=== PATIENT | female | born 1955 | race Caucasian/White ===

== ENCOUNTER 2021-08-04 16:52 | Emergency (ER) | payer MEDICARE, SELFPAY ==
--- NOTE | ~2021-08-04 | XR_ITS ---
EXAMINATION: XR chest 2V 08/04/2021 17:24 INDICATION: Cough for 3 weeks PROCEDURE: 2 view chest COMPARISON: 11/05/2008 FINDINGS: The lungs are clear. The cardiomediastinal silhouette is within normal limits. There are no pleural effusions. There is no pneumothorax suspected. There are cholecystectomy clips. IMPRESSION: 1: NO ACUTE CARDIOPULMONARY DISEASE. Reviewed, dictated and finalized at location A.
[2021-08-04 17:02] VITALS: BP 155/85; PULSE 71; RESP 16; TEMP 36.5; O2SAT 98
--- NOTE | 2021-08-04 17:09 | ED.URI ---
HPI - URI/Sore Throat General Chief Complaint: Upper Respiratory Infection Stated Complaint: Coughing, shortness of breath, chest pain Time Seen by Provider: 08/04/21 17:04 Source: patient, family and RN notes reviewed History of Present Illness HPI Narrative: Patient is a 66-year-old female who presents the urgent care with her with complaints of a cough and possible bronchitis. Patient states is been ongoing for approximately 3 weeks and she has been taking [id number] cough medications without much improvement. Patient denies of any known fever but states she has had some chills and sweats at night. Denies of any vomiting. States that she has some intermittent shortness of breath but currently denies of shortness of breath or chest pain. Patient's states that he had pneumonia a few weeks ago. No other acute complaints. No acute distress noted. Patient aware of the plan of care. Some parts of this dictation were generated by voice recognition software and may contain typographical and/or grammatical inaccuracies. Related Data Home Medications Medication Instructions Recorded Confirmed atorvastatin 20 mg tablet 20 mg PO DAILY 04/13/21 08/04/21 diclofenac sodium 75 mg 75 mg PO BID 04/13/21 08/04/21 tablet,delayed release levothyroxine 25 mcg capsule 25 mcg PO DAILY 04/13/21 08/04/21 metoprolol succinate 50 mg 50 mg PO DAILY 04/13/21 08/04/21 tablet,extended release 24 hr omeprazole 20 mg capsule,delayed 20 mg PO DAILY 04/13/21 08/04/21 release minocycline 50 mg capsule 50 mg PO DAILY 04/19/21 08/04/21 buspirone 5 mg PO BID 08/04/21 08/04/21 cetirizine [Zyrtec] 10 mg PO DAILY 08/04/21 08/04/21 diazepam [Valium] 10 mg PO TID PRN 08/04/21 08/04/21 Allergies Allergy/AdvReac Type Severity Reaction Status Date / Time latex Allergy Severe RASH Verified 08/04/21 17:10 ITCHING WHERE TOUCHED Review of Systems Review of Systems: CONSTITUTIONAL: Denies fever, chills, or sweats. EYES: Denies visual changes, redness, or discharge. ENT: Denies rhinorrhea, congestion, sore throat, or otalgia. CARDIOVASCULAR: Denies chest pain, palpitations, or edema. RESPIRATORY: Reports of wet cough and intermittent dyspnea GASTROINTESTINAL: Denies abdominal pain, nausea, vomiting, or diarrhea. GENITOURINARY: Denies dysuria or hematuria. SKIN: Denies rash or itching. MUSCULOSKELETAL: Denies back pain, joint pain, or myalgia. NEUROLOGIC: Denies headache, numbness, or weakness. All other systems reviewed are negative, except as documented in HPI. [facility] Past Medical History Medical History (Updated 08/04/21 @ 17:32 by SIL Hammer) GERD (gastroesophageal reflux disease) High blood pressure High cholesterol History of breast cancer Surgical History Surgical History H/O bilateral mastectomy History of partial hysterectomy Hx of tonsillectomy Family History Family History Father Hypertension Mother Hypertension Grandparent Breast cancer Social History Social History Years smoked: 20 Smoking status: Former smoker Tobacco type: cigarettes Alcohol intake: never Additional occupation/education comments: homemaker Comments At the time of my signature, I reviewed and agree with the nursing past medical, surgical, social, and family history. There is no relevant family history pertinent to the patient complaint. Exam Narrative: GENERAL: This is a well-nourished, well-developed patient, in no apparent distress. HEAD: normocephalic, atraumatic. EYES: PERRL. Sclera clear/white. Vision is grossly intact. EARS: External ears normal, auditory canals clear and without drainage, TMs normal without perforation. Hearing grossly intact. NOSE: External nose normal with no obvious nasal discharge, nares without
[2021-08-04 17:13] VITALS: BP 155/85; PULSE 71; RESP 16; TEMP 36.5; O2SAT 98
== END 2021-08-04 17:41 | disposition home or self-care (01) ==
PROVIDERS: Emergency Provider Nurse Practitioner Family; PCP Family Medicine
DX: J40 Bronchitis, not specified as acute or chronic (principal); Z87.891 Personal history of nicotine dependence; K21.9 Gastro-esophageal reflux disease without esophagitis; Z90.13 Acquired absence of bilateral breasts and nipples
CPT/HCPCS: 71046; 99213; G0463

== ENCOUNTER 2021-08-25 15:04 | Emergency (ER) | payer MEDICARE, SELFPAY ==
--- NOTE | ~2021-08-25 | XR_ITS ---
XR chest 2V DATE: 08/25/2021 16:37 INDICATION: Cough, shortness of breath for 2 weeks. Former smoker. TECHNIQUE: PA and lateral views COMPARISON: None FINDINGS: Normal heart size. No hilar or mediastinal enlargement. No pulmonary infiltrate or consolid ation, pleural effusion or pulmonary vascular congestion or pneumothorax. Moderate bilateral hyperinflation. Surgical clips overlie the right axillary area and right upper quadrant of the abdomen. Degenerative disc disease and uncovertebral joint spurring in the lower cervical spine. Osteoarthritic change at the left and possibly right shoulder joints. Osteopenia. IMPRESSION: Moderate hyperinflation; no active cardiopulmonary disease Reviewed, dictated and finalized at location B.
--- NOTE | ~2021-08-25 | CT_ITS ---
EXAMINATION: CTA chest PE protocol DATE: 08/25/2021 20:23 INDICATION: Shortness of breath and cough TECHNIQUE: Computed tomography angiography (CTA) of the chest was performed with 100 mL Omnipaque-350 intravenous contrast timed to evaluate the pulmonary arteries. Coronal maximum intensity projection 3D-reconstructions were created by the technologist. The dose-length product (DLP) was 220.88 mGy-cm. Automated exposure control and iterative reconstruction technique were employed. COMPARISON: 10/12/2010 FINDINGS: The pulmonary arteries are well-opacified. No pulmonary embolism is identified. There are a few small clusters of nodules in the lower lobes. There is no pleural effusion or pneumothorax. Calc ified pulmonary nodules are consistent with old granulomatous disease. No pathologically enlarged tho racic lymph nodes are identified. The heart size is normal. There are changes of bilateral mastectomy with implant reconstruction. The gallbladder is surgically absent. There is a chronic burst fracture of T12 without significant change. IMPRESSION: 1. No pulmonary embolism. 2. Small clusters of nodules in the lower lobes, likely infectious or inflammatory. Reviewed, dictated and finalized at location A. IMPRESSION: 1. No pulmonary embolism. 2. Small clusters of nodules in the lower lobes, likely infectious or inflammat ory.
[2021-08-25 15:05] VITALS: PULSE 90; RESP 20; O2SAT 94
--- NOTE | 2021-08-25 15:08 | ECG_ITS ---
Measurements Intervals [place] Rate: 80 P: 63 NH: 134 QRS: 62 QRSD: 81 T: 67 QT: 354 QTc: 409 Interpretive Statements SINUS RHYTHM WITH SINUS ARRHYTHMIA BASELINE ARTIFACT- I, III, AVR, AVL, AVF, V1 NORMAL ECG Electronically Signed On 08-25-2021 16:16:50 CDT by Anibal Yee D.O.
[2021-08-25 16:07] VITALS: BP 163/101; PULSE 88; RESP 14; TEMP 36.2; O2SAT 98
[2021-08-25 16:13] LABS: Basophils Percent Auto 0.4 % (0.2-1.2); Eosinophils Absolute Auto 0.6 K/mm3 (0-0.3); Eosinophils Percent Auto 7.5 % (0-4.4); Hematocrit 42.5 % (37.0-47.0); Hemoglobin 14.2 g/dL (12.0-15.0); Immature Granulocyte Absolute 0.01 K/mm3 (0.00-0.031); Immature Granulocyte Percent A 0.1 % (0-0.5); Lymphocytes Absolute Auto 2.15 K/mm3 (0.9-3.2); Lymphocytes Percent Auto 28.7 % (18.3-44.2); Mean Corpuscular HGB Conc 33.4 g/dl (32-36); Mean Corpuscular Hemoglobin 30.5 pg (26-34); Mean Corpuscular Volume 91.2 fl (80-100); Mean Platelet Volume 8.8 fl (7.4-10.4); Monocytes Absolute Auto 0.5 K/mm3 (0.1-0.6); Monocytes Percent Auto 6.7 % (2.6-8.5); Neutrophils Absolute Auto 4.3 K/mm3 (1.3-6.7); Neutrophils Percent Auto 56.6 % (45.5-73.1); Platelet Count Result 251 k/mm3 (150-375); Red Blood Count 4.66 M/mm3 (4.2-5.4); Red Cell Distribution Width 14.2 % (11.5-14.5); White Blood Count 7.5 K/mm3 (4.5-10.0)
[2021-08-25 16:23] LABS: Anion Gap 10 mmol/L (8-16); Blood Urea Nitrogen 13 mg/dL (7-17); Carbon Dioxide 26 mmol/L (22-30); Chloride 106 mmol/L (98-107); Estimated CRCL calculation 52 ml/min; Estimated Glomerular Filt Rate > 60; Glucose 107 mg/dL (65-110); Potassium 3.9 mmol/L (3.4-5.0); Sodium 142 mmol/L (137-145)
[2021-08-25 16:45] VITALS: O2SAT 100
[2021-08-25 17:08] LABS: Alveolar/Arterial O2 Gradient 36.7 mmHg; Base Excess ABG -0.1 mEq/l (+/-2.0); Fractional Inspired Oxygen 21 %; HCO3 ABG 24.4 mEq/l (22.0-26.0); Oxygen Content ABG 19.7 %vol (16.0-22.0); Oxygen Saturation ABG 93.3 % (95.0-100.0); Oxyhemoglobin 91.8 % THb (90.0-100.0); PCO2 ABG 39.4 mmHg (35.0-45.0); PO2 ABG 65.9 mmHg (80.0-100.0); PO2 FiO2 Ratio Arterial Blood 3.14 %; Total Hemoglobin 15.3 g/dL (12.0-18.0)
[2021-08-25 17:09] LABS: Device ROOM AIR; Modified Allen's Test Pass; Site Drawn LEFT RADIAL
--- NOTE | 2021-08-25 19:09 | PC.NURSE ---
Pt refusing lab draw for D-dimer. EDP goldie aware
--- NOTE | 2021-08-25 19:24 | PC.NURSE ---
Report received from IRVING Hayes. Assumed care of patient at this time.
--- NOTE | 2021-08-25 19:53 | PC.NURSE ---
Patient agreed to CT, IV was placed. Patient declined request for repeat VS.
--- NOTE | 2021-08-25 20:10 | PC.NURSE ---
Patient taken to CT.
--- NOTE | 2021-08-25 20:36 | ED.SOB ---
HPI - SOB/Dyspnea General Chief Complaint: Shortness of Breath/Dyspnea Stated Complaint: SOB- BLUISH LIPS SATS 94% Time Seen by Provider: 08/25/21 16:41 Source: patient and family Mode of arrival: ambulatory Limitations: no limitations History of Present Illness HPI Narrative: 66-year-old female A former smoker who has received a moderna Covid vaccine Complains of cough and shortness of breath for several weeks Patient reports that she had had symptoms for a couple of weeks when she was seen at an urgent care about 3 weeks ago and was prescribed steroids and an inhaler She did not feel like she was really getting better and was followed up by her primary care doctor in the office several days ago and prescribed a Z-Yung which she also does not believe is helping her but which she is still taking for 2 more days She feels like she has wheezing, a cough which is sometimes productive of clear phlegm, no fever Her notes that she has seasonal allergies He also mentions that he does not think she is using her inhaler correctly, and on asking her to demonstrate it does appear that she is using it in the opposite way of which it is intended and that she takes a full deep breath before depressing the plunger while she exhales She does have a huge bottle of minocin which she takes very intermittently for rosacea and has not used lately She is not aware of being previously diagnosed with any heart problems or lung problems She also complains of some bluish discoloration to her perioral skin Related Data Home Medications Medication Instructions Recorded Confirmed atorvastatin 20 mg tablet 20 mg PO DAILY 04/13/21 08/04/21 diclofenac sodium 75 mg 75 mg PO BID 04/13/21 08/04/21 tablet,delayed release levothyroxine 25 mcg capsule 25 mcg PO DAILY 04/13/21 08/04/21 metoprolol succinate 50 mg 50 mg PO DAILY 04/13/21 08/04/21 tablet,extended release 24 hr omeprazole 20 mg capsule,delayed 20 mg PO DAILY 04/13/21 08/04/21 release minocycline 50 mg capsule 50 mg PO DAILY 04/19/21 08/04/21 buspirone 5 mg PO BID 08/04/21 08/04/21 cetirizine [Zyrtec] 10 mg PO DAILY 08/04/21 08/04/21 diazepam [Valium] 10 mg PO TID PRN 08/04/21 08/04/21 Allergies Allergy/AdvReac Type Severity Reaction Status Date / Time latex Allergy Severe RASH Verified 08/04/21 17:10 ITCHING WHERE TOUCHED Review of Systems Review of Systems: All systems reviewed & are unremarkable except as noted in HPI and below Constitutional: Constitutional: Reports no additional constitutional complaints, Denies chills, Denies fever(s) and Denies headache(s) Eyes: Eyes: Reports no additional eye complaints and Denies change in vision ENT: Denies headache(s), Reports nasal congestion and Denies sore throat Cardiovascular: Cardiovascular: Denies chest pain and Denies dyspnea Respiratory: Respiratory: Reports cough, Reports dyspnea and Reports wheezing Gastrointestinal: Gastrointestinal: Denies abdominal pain, Denies diarrhea and Denies vomiting Genitourinary: Genitourinary: Denies urinary frequency and Denies dysuria Musculoskeletal: Musculoskeletal: Denies deformity, Denies arthralgias, Denies joint swelling and Denies numbness Integumentary/Breasts: Skin/Breast: Denies rash and Denies wounds Neurologic: Denies headache(s), Denies focal weakness and Denies numbness Psychiatric: Psychiatric: Reports no additional psychiatric complaints Endocrine: Endocrine: Reports no additional endocrine complaints Hematologic/Lymphatic: Hematologic/Lymphatic: Reports no additional hematologic/lymphatic complaints Allergic/Immunologic: Allergic/Immunologic: Reports no additional allergic/immunologic complaints [facility] Past Medical History Medical History GERD (gastroesophageal reflux disease) High blood pressure High cholesterol History of breast cancer Surgical History Surgical History (Review
[2021-08-25 21:15] VITALS: BP 162/97; PULSE 91; RESP 18; TEMP 36.3; O2SAT 97
== END 2021-08-25 21:09 | disposition home or self-care (01) ==
PROVIDERS: Emergency Medicine; Emergency Provider Emergency Medicine; PCP Family Medicine
DX: J44.9 Chronic obstructive pulmonary disease, unspecified (principal); K21.9 Gastro-esophageal reflux disease without esophagitis; I10 Essential (primary) hypertension; E78.00 Pure hypercholesterolemia, unspecified; Z85.3 Personal history of malignant neoplasm of breast; Z90.13 Acquired absence of bilateral breasts and nipples; Z87.891 Personal history of nicotine dependence
CPT/HCPCS: 36415; 36600; 71046; 71275; 80048; 82805; 85025; 93005; 99284; Q9967

== ENCOUNTER 2021-11-09 16:32 | Inpatient (IN) | payer MEDICARE, SELFPAY ==
[2021-11-09] VITALS (16 sets, daily range): BP systolic 114–158; BP diastolic 77–97; PULSE 107–174; RESP 22–35; O2SAT 94–100
--- NOTE | ~2021-11-09 | US_ITS ---
EXAMINATION: US thoracentesis DATE: 11/10/2021 13:11 INDICATION: pleural effusion TECHNIQUE: The procedure and its risks, benefits, and alternatives were discussed with the patient. P otential risks discussed included bleeding, infection, and pneumothorax. The patient understood the r isks and agreed to proceed. The skin was prepped and draped in sterile fashion. 1% lidocaine was used for local anesthesia. Under ultrasound guidance, a 5 Fr catheter with trochar was advanced into the left pleural effusion. Fluid was aspirated. The catheter was removed, and a dressing was applied. The re were no immediate complications. FINDINGS: Ultrasound images demonstrate a left pleural effusion and the catheter within the fluid. IMPRESSION: 1. Successful ultrasound-guided thoracentesis yielding 600 mL of cloudy, yellow fluid. Reviewed, dictated and finalized at location A. CTOR OF RETAIL IMPRESSION: 1. Successful ultrasound-guided thoracentesis yielding 600 mL of cloudy, yello w fluid.
--- NOTE | ~2021-11-09 | XR_ITS ---
EXAMINATION: [id number] DATE: 11/10/2021 13:01 INDICATION: Left pleural effusion status post thoracentesis. TECHNIQUE: A single frontal view of the chest was obtained. COMPARISON: Chest 2 views 11/09/2021 FINDINGS: There is a moderate-sized loculated left pleural effusion. There are airspace opacities in all left lung zones with a peripheral predominance. No pneumothorax. The heart size is normal. There are surgical clips in right axilla. IMPRESSION: 1. Moderate-sized loculated left pleural effusion with improvement status post thoracentesis. 2. Airspace opacities in left lung with a peripheral predominance, likely atelectasis. Reviewed, dictated and finalized at location A. IPAN MAKER IMPRESSION: 1. Moderate-sized loculated left pleural effusion with improvement status post thoracentesis. 2. Airspace opacities in left lung with a peripheral predominance, likely atele ctasis.
--- NOTE | ~2021-11-09 | XR_ITS ---
EXAMINATION: XR chest 1V portable DATE: 11/11/2021 11:26 INDICATION: Shortness of breath. TECHNIQUE: A single frontal view of the chest was obtained. COMPARISON: Chest single view 11/10/2021 FINDINGS: There is a moderate-sized loculated left pleural effusion. There are airspace opacities in left lung with a peripheral predominance. No pneumothorax. The heart size is normal. There are surgic al clips in right axilla. IMPRESSION: 1. Stable moderate-sized loculated left pleural effusion. 2. Stable airspace opacities in left lung with a peripheral predominance, likely atelectasis. Reviewed, dictated and finalized at location A. STERED TRAVEL NURSE IMPRESSION: 1. Stable moderate-sized loculated left pleural effusion. 2. Stable airspace opacities in left lung with a peripheral predominance, likel y atelectasis.
--- NOTE | ~2021-11-09 | XR_ITS ---
XR chest 2V 11/09/2021 17:12 Indication: Dyspnea Procedure: 2 view chest Comparison: Comparison to multiple prior studies sequentially, with oldest reviewed study dated 10/25. Findings: Moderate left pleural effusion, possibly loculated. Left sided airspace disease mid and low er lung which may represent pneumonia and/or atelectasis. Right lung clear. No pneumothorax. There ar e cholecystectomy clips. Impression: 1: Left sided airspace disease which may represent pneumonia and/or atelectasis. 2: Moderate left pleural effusion, possibly loculated. Reviewed, dictated and finalized at location A. SERGEANT Impression: 1: Left sided airspace disease which may represent pneumonia and/or atelectasis . 2: Moderate left pleural effusion, possibly loculated.
--- NOTE | ~2021-11-09 | CT_ITS ---
EXAMINATION: CTA chest PE protocol DATE: 11/09/2021 18:21 SAFETY COORDINATOR INDICATION: Dyspnea, confusion and sepsis TECHNIQUE: Computed tomographic angiography (CTA) of the chest was performed with 100 mL Omnipaque-35 0 intravenous contrast. The dose-length product was 172.57 mGy-cm. Maximum intensity projection 3D-re constructions of the aorta and other arteries were constructed by the technologist on a separate work station. COMPARISON: CT dated 08/25/2021. FINDINGS: Study is technically adequate without evidence for pulmonary embolism. Heart size normal. T here is a moderate-large loculated left pleural effusion with underlying compressive atelectasis. Sup erimposed pneumonia not excluded. No mediastinal shift. No endobronchial lesions. No mediastinal lymp hadenopathy. There are are bilateral breast implants. The upper abdomen is unremarkable. The previous ly visualized lower lobe nodules are not identified possibly due to motion artifact and new left pleu ral effusion. IMPRESSION: 1. No evidence for pulmonary embolism. 2: Moderate-large loculated left pleural effusion with probable underlying compressive atelectasis. Superimposed pneumonia not excluded. Reviewed, dictated and finalized at location A. TY COORDINATOR IMPRESSION: 1. No evidence for pulmonary embolism. 2: Moderate-large loculated left pleural effusion with probable underlying com pressive atelectasis. Superimposed pneumonia not excluded.
--- NOTE | ~2021-11-09 | XR_ITS ---
XR chest 1V portable 11/12/2021 14:10 Indication: Pneumonia Procedure: AP portable chest Comparison: Comparison to multiple prior studies sequentially, with oldest reviewed study dated 11/2020. Findings: Stable moderate left pleural effusion with underlying compressive atelectasis. Right lung c lear. No pneumothorax. No acute osseous abnormality. Impression: 1: Stable moderate left pleural effusion with underlying compressive atelectasis. Reviewed, dictated and finalized at location A. EAR WEAPONS MECHANICAL SPECIALIST Impression: 1: Stable moderate left pleural effusion with underlying compressive atelectasi s.
--- NOTE | 2021-11-09 16:39 | ECG_ITS ---
Measurements Intervals [place] Rate: 132 P: 50 PA: 114 QRS: 51 QRSD: 86 T: 15 QT: 276 QTc: 410 Interpretive Statements SINUS TACHYCARDIA WITH SHORT PA INTERVAL NONSPECIFIC T-WAVE ABNORMALITY- ANTEROLAT/INF LEADS BASELINE ARTIFACT- I, II, III, AVR, AVL, AVF, V3-V4 ABNORMAL ECG Electronically Signed On 11-09-2021 20:20:09 CLINIC SCHEDULER by Anibal Yee D.O.
--- NOTE | 2021-11-09 16:47 | ED.SOB ---
HPI - SOB/Dyspnea General Chief Complaint: Shortness of Breath/Dyspnea Stated Complaint: SOB Time Seen by Provider: 11/09/21 16:46 Source: patient Mode of arrival: ambulatory Limitations: no limitations History of Present Illness HPI Narrative: Patient is a 66-year-old female with a history of COPD presenting for evaluation of shortness of breath, hypoxia found at her primary care physician's office today. Patient reports that she has been diagnosed with pneumonia, has been taking antibiotics at home, but has had worsening shortness of breath over the past week. Patient was finally seen in her primary care physician's office today and reportedly did an ambulation challenge, where patient's oxygen level dropped into the 80s on room air. Due to this, patient was referred to our emergency department. Patient reports cough with shortness of breath. She does report sputum production. She denies hemoptysis. She reports subjective fever and chills. Patient reports she generally feels unwell. She denies any koby chest pain. She has been using DuoNeb treatment without much improvement in her symptoms. Patient is vaccinated for Covid. Denies history of known Covid infection. Her physician's office reported that patient had a CTA which was negative for pulmonary embolism, however on review of the patient's chart, she had a CTA performed in August 25 which was negative. I do not see anything else more recent than that study. Related Data Home Medications Medication Instructions Recorded Confirmed atorvastatin 20 mg tablet 20 mg PO DAILY 04/13/21 08/04/21 diclofenac sodium 75 mg 75 mg PO BID 04/13/21 08/04/21 tablet,delayed release levothyroxine 25 mcg capsule 25 mcg PO DAILY 04/13/21 08/04/21 metoprolol succinate 50 mg 50 mg PO DAILY 04/13/21 08/04/21 tablet,extended release 24 hr omeprazole 20 mg capsule,delayed 20 mg PO DAILY 04/13/21 08/04/21 release minocycline 50 mg capsule 50 mg PO DAILY 04/19/21 08/04/21 buspirone 5 mg PO BID 08/04/21 08/04/21 cetirizine [Zyrtec] 10 mg PO DAILY 08/04/21 08/04/21 diazepam [Valium] 10 mg PO TID PRN 08/04/21 08/04/21 Allergies Allergy/AdvReac Type Severity Reaction Status Date / Time latex Allergy Severe RASH Verified 08/04/21 17:10 ITCHING WHERE TOUCHED Review of Systems Review of Systems: CONSTITUTIONAL: Reports fever and chills EYES: Denies visual changes, redness, or discharge. ENT: Reports rhinorrhea and congestion CARDIOVASCULAR: Denies chest pain, palpitations, or edema. RESPIRATORY: Reports cough and dyspnea GASTROINTESTINAL: Denies abdominal pain, nausea, vomiting, or diarrhea. GENITOURINARY: Denies dysuria or hematuria. SKIN: Denies rash or itching. MUSCULOSKELETAL: Denies back pain, joint pain, or myalgia. NEUROLOGIC: Denies headache, numbness, reports feeling generally weak PMFSH Past Medical History Medical History GERD (gastroesophageal reflux disease) High blood pressure High cholesterol History of breast cancer Surgical History Surgical History H/O bilateral mastectomy History of partial hysterectomy Hx of tonsillectomy Family History Family History Father Hypertension Mother Hypertension Grandparent Breast cancer Social History Social History Years smoked: 20 Smoking status: Former smoker Tobacco type: cigarettes Alcohol intake: never Additional occupation/education comments: homemaker Exam Narrative: GENERAL: Awake, alert, conversant HEAD: Normocephalic, atraumatic. EYES: PERRLA and EOMI. ENT: Nares clear, no rhinorrhea or epistaxis. Mucous membranes moist. NECK: Supple. CHEST: Patient is tachypneic, coarse breath sounds bilaterally, faint crackles in the bilateral lower lobes, decreased ae
[2021-11-09 17:07] LABS: Hematocrit 38.6 % (37.0-47.0); Hemoglobin 12.9 g/dL (12.0-15.0); Mean Corpuscular HGB Conc 33.4 g/dl (32-36); Mean Corpuscular Hemoglobin 29.8 pg (26-34); Mean Corpuscular Volume 89.1 fl (80-100); Mean Platelet Volume 9.2 fl (7.4-10.4); Platelet Count Result 363 k/mm3 (150-375); Red Blood Count 4.33 M/mm3 (4.2-5.4); Red Cell Distribution Width 13.6 % (11.5-14.5); White Blood Count 35.9 K/mm3 (4.5-10.0)
[2021-11-09 17:17] LABS: Alanine Aminotransferase 21 U/L (4-35); Albumin Level 3.2 g/dL (3.5-5.1); Alkaline Phosphatase 248 U/L (38-126); Anion Gap 7 mmol/L (8-16); Aspartate Amino Transferase 41 U/L (14-36); Bilirubin,Total 0.5 mg/dL (0.2-1.3); Blood Urea Nitrogen 15 mg/dL (7-17); Calcium 9.1 mg/dL (8.4-10.2); Carbon Dioxide 25 mmol/L (22-30); Chloride 93 mmol/L (98-107); Estimated CRCL calculation 42 ml/min; Estimated Glomerular Filt Rate > 60; Glucose 252 mg/dL (65-110); Potassium 3.8 mmol/L (3.4-5.0); Sodium 125 mmol/L (137-145)
[2021-11-09] MEDS: IPRATROPIUM BR 0.02% INH SOLN 0.5 MG/2.5 ML VIAL INHALATION (17:18)
[2021-11-09] MEDS: ALBUTEROL SULFATE NEB 2.5 MG/0.5 ML INH 5 MG INHALATION (17:18)
[2021-11-09 17:32] LABS: Band Neutrophils Percent 20 % (0-6); Lymphocytes Absolute Manual 0.71 K/mm3 (1.1-4.5); Monocytes Absolute Manual 1.43 K/mm3 (0.1-0.90); Monocytes Percent Manual 4 % (3-9); Neutrophils Absolute Manual 33.74 K/mm3 (1.7-7.2); Neutrophils Percent Manual 74 % (46-73); Total Cells Counted 100
[2021-11-09 17:33] LABS: Platelet Estimate Adequate (Adequate)
[2021-11-09 17:49] LABS: INR 1.2; Prothrombin Time 14.6 Seconds (11.1-14.7)
[2021-11-09 17:50] LABS: Partial Thromboplastin Time 33.7 SECONDS (22.3-36.8)
[2021-11-09 17:57] LABS: NT Pro B Type Natriuretic Pept 1580 pg/mL (5-100)
[2021-11-09 18:04] LABS: CRP 8.1 mg/dL (<1.0)
[2021-11-09 18:06] LABS: Troponin I < 0.012 ng/mL (0.000-0.034)
[2021-11-09 18:09] LABS: Lactic Acid Reflex 3.9 mmol/L (0.7-2.1)
--- NOTE | 2021-11-09 18:28 | ECG_ITS ---
Measurements Intervals [place] Rate: 131 P: 49 CT: 105 QRS: 17 QRSD: 94 T: 15 QT: 292 QTc: 431 Interpretive Statements SINUS TACHYCARDIA WITH SHORT CT INTERVAL NONSPECIFIC T-WAVE ABNORMALITY- INF/HIGH LAT LEADS BASELINE ARTIFACT- I, II, III, AVR, AVL, AVF, V1-V6 ABNORMAL ECG Electronically Signed On 11-09-2021 20:34:58 CLAM DREDGER by Anibal Yee D.O.
[2021-11-09 18:40] LABS: Alveolar/Arterial O2 Gradient 69.9 mmHg; Base Excess ABG -2.8 mEq/l (+/-2.0); Carboxyhemoglobin 0.4 % THb (0-2.0); Device NASAL CANNULA; Fractional Inspired Oxygen 28 %; HCO3 ABG 22.6 mEq/l (22.0-26.0); Methemoglobin ABG 0.5 %THb (0-1.5); Oxygen Saturation ABG 95.4 % (95.0-100.0); Oxyhemoglobin 94.1 % THb (90.0-100.0); PCO2 ABG 41.8 mmHg (35.0-45.0); PO2 ABG 80.4 mmHg (80.0-100.0); PO2 FiO2 Ratio Arterial Blood 2.87 %; Site Drawn RIGHT RADIAL; Total Hemoglobin 12.8 g/dL (12.0-18.0); pH ABG 7.351 (7.350-7.450)
--- NOTE | 2021-11-09 19:02 | ECG_ITS ---
Measurements Intervals [place] Rate: 134 P: 43 NE: 118 QRS: 48 QRSD: 96 T: 36 QT: 293 QTc: 438 Interpretive Statements SINUS TACHYCARDIA WITH SHORT NE INTERVAL NONSPECIFIC T-WAVE ABNORMALITY- DIFFUSE LEADS BASELINE ARTIFACT- I, II, III, AVR, AVL, AVF, V2-V6 ABNORMAL ECG Electronically Signed On 11-14-2021 8:30:44 SAMPLE EXAMINER by Anibal Yee D.O.
[2021-11-09] MEDS: METOPROLOL TARTRATE INJ 5 MG/5 ML VIAL IV PUSH (20:43)
[2021-11-09 20:55] LABS: Reflex Lactic Acid Yes or No Add Lactic
[2021-11-09 21:54] LABS: INR 1.2; Prothrombin Time 15.1 Seconds (11.1-14.7)
[2021-11-09 21:55] LABS: Partial Thromboplastin Time 32.8 SECONDS (22.3-36.8)
[2021-11-09 21:56] LABS: Lactic Acid 3.2 mmol/L (0.7-2.1)
--- NOTE | 2021-11-09 22:16 | PM.IMHP ---
H&P: HPI History of Present Illness Date/Time: 11/09/21 22:16 this is a 66-year-old female patient who tells me that she has been sick for at least 1 and half months. She stated she has taken steroids and antibiotics and still has not felt very well at all. The patient stated that she has been vaccinated for COVID and has not had any positive COVID test. She does have a history of having COPD and does not typically wear oxygen at home. The patient was found to be hypoxic at her primary care physician's office today. She recently was diagnosed with pneumonia and she had taken all of her antibiotics. The patient's oxygen level dropped down to 80% on room air. Due to this the patient was referred to the emergency room. She does have a cough and shortness of breath. She denies any fevers. As per ER notes the physician's office reported that patient had a CTA which was negative for pulmonary embolus. Repeat CTA today shows no evidence of pulmonary embolism. Moderate large loculated left pleural effusion with probable underlying compressive atelectasis. Superimposed pneumonia not excluded. Chest x-ray shows left-sided airspace disease which may represent pneumonia and/or atelectasis. Moderate left pleural effusion possibly loculated. The ER physician stated that she did talk with the spooler operator automatic as well as the interventional radiologist. The ED provider stated that Interventional Radiology stated that they would be able to do a thoracentesis on the patient although it is loculated. I discussed this case with my collaborative Dr. prieto who agreed with the admission and vancomycin. Patient's heart rate remained in the 160s and 170s with an elevated blood pressure. My collaborative was agreeable to 1 time dose of Lopressor. The patient was given 30 mils per kg per sepsis protocol. She was given a breathing treatment she was given Rocephin, a azithromycin and vancomycin in the emergency room. EKG was read as sinus tachycardia with short WA interval. The patient is being admitted to inpatient services on the date of 11/09/2021. Chief Complaint: Shortness of breath Review of Systems Review of Systems: All systems reviewed & are unremarkable except as noted in HPI and below Constitutional: Constitutional: Reports as per HPI and Reports no additional constitutional complaints Eyes: Eyes: Reports as per HPI and Reports no additional eye complaints ENT: Reports system reviewed and no additional complaints, except as documented and Reports Normal hearing present Cardiovascular: Cardiovascular: Reports no additional cardiovascular complaints Respiratory: Respiratory: Reports no additional respiratory complaints and Reports no additional respiratory complaints Gastrointestinal: Gastrointestinal: Reports as per HPI and Reports no additional gastrointestinal complaints Musculoskeletal: Musculoskeletal: Reports no additional musculoskeletal complaints Integumentary/Breasts: Skin/Breast: Reports system reviewed and no additional complaints, except as docu and Reports as per HPI Neurologic: Reports system reviewed and no additional complaints, except as documented, Reports as per HPI and Reports Normal hearing present Psychiatric: Psychiatric: Reports no additional psychiatric complaints and Reports as per HPI Endocrine: Endocrine: Reports no additional endocrine complaints Hematologic/Lymphatic: Hematologic/Lymphatic: Reports no additional hematologic/lymphatic complaints Allergic/Immunologic: Allergic/Immunologic: Reports no additional allergic/immunologic complaints [facility] Past Medical History Medical History (Updated 11/09/21 @ 22:37 by eLslie Burnette NP) COPD (chronic obstructive pulmonary disease) GERD (gastroesophageal reflux disease) High blood pressure High cholesterol History of breast cancer Bilateral mastectomy without any chemo or radiation Hyperlipidemia Hypothyroidism Surgical History Surgical History (Reviewed 11/09/21 @ 1
[2021-11-09] MEDS: SODIUM CHLORIDE 0.9% IV 1,000 ML 125 ML IV CONT (22:23)
[2021-11-09 22:40] LABS: Anion Gap 12 mmol/L (8-16); Blood Urea Nitrogen 13 mg/dL (7-17); Calcium 8.7 mg/dL (8.4-10.2); Carbon Dioxide 20 mmol/L (22-30); Chloride 96 mmol/L (98-107); Estimated CRCL calculation 46 ml/min; Estimated Glomerular Filt Rate > 60; Glucose 210 mg/dL (65-110); Potassium 3.6 mmol/L (3.4-5.0); Sodium 128 mmol/L (137-145)
[2021-11-09 22:53] LABS: Troponin I < 0.012 ng/mL (0.000-0.034)
[2021-11-10] VITALS (17 sets, daily range): BP systolic 110–176; BP diastolic 69–103; PULSE 109–133; RESP 20–32; TEMP 36.6; O2SAT 95–100; BMI 23.2; BMI 24.3
[2021-11-10] MEDS: ALBUTEROL SULFATE (*SP) AEROSOL 1 PUFF 2 PUFF INHALATION ×4 (01:32→23:07)
[2021-11-10 01:59] LABS: Troponin I < 0.012 ng/mL (0.000-0.034)
[2021-11-10 06:18] LABS: Basophils Absolute Auto 0.1 K/mm3 (0.0-0.1); Basophils Percent Auto 0.3 % (0.2-1.2); Eosinophils Absolute Auto 0.2 K/mm3 (0-0.3); Eosinophils Percent Auto 0.6 % (0-4.4); Hematocrit 34.9 % (37.0-47.0); Hemoglobin 11.7 g/dL (12.0-15.0); Immature Granulocyte Absolute 0.68 K/mm3 (0.00-0.031); Immature Granulocyte Percent A 2.6 % (0-0.5); Lymphocytes Absolute Auto 1.04 K/mm3 (0.9-3.2); Lymphocytes Percent Auto 3.9 % (18.3-44.2); Mean Corpuscular HGB Conc 33.5 g/dl (32-36); Mean Corpuscular Hemoglobin 29.5 pg (26-34); Mean Corpuscular Volume 88.1 fl (80-100); Mean Platelet Volume 9.2 fl (7.4-10.4); Monocytes Absolute Auto 1.7 K/mm3 (0.1-0.6); Monocytes Percent Auto 6.6 % (2.6-8.5); Neutrophils Absolute Auto 22.8 K/mm3 (1.3-6.7); Platelet Count Result 362 k/mm3 (150-375); Red Blood Count 3.96 M/mm3 (4.2-5.4); Red Cell Distribution Width 13.2 % (11.5-14.5); White Blood Count 26.5 K/mm3 (4.5-10.0)
[2021-11-10 06:30] LABS: Alanine Aminotransferase 15 U/L (4-35); Albumin Level 2.6 g/dL (3.5-5.1); Alkaline Phosphatase 247 U/L (38-126); Anion Gap 7 mmol/L (8-16); Aspartate Amino Transferase 28 U/L (14-36); Bilirubin,Total 0.2 mg/dL (0.2-1.3); Blood Urea Nitrogen 10 mg/dL (7-17); Calcium 8.8 mg/dL (8.4-10.2); Carbon Dioxide 26 mmol/L (22-30); Chloride 98 mmol/L (98-107); Estimated CRCL calculation 60 ml/min; Estimated Glomerular Filt Rate > 60; Glucose 131 mg/dL (65-110); Lactate Dehydrogenase 255 U/L (313-618); Lipase 20 U/L (23-300); Magnesium 1.8 mg/dL (1.6-2.3); Sodium 131 mmol/L (137-145)
[2021-11-10] MEDS: SODIUM CHLORIDE 0.9% IV 1,000 ML 125 ML IV CONT ×3 (06:58→23:20)
[2021-11-10 07:09] LABS: Thyroid Stimulating Hormone Reflex 0.176 uIU/mL (0.465-4.68)
[2021-11-10 08:19] LABS: Burr Cells 2+ (NORMAL); Large Platelets Present; Platelet Estimate Adequate (Adequate)
--- NOTE | 2021-11-10 09:00 | PC.NURSE ---
Lovenox held per [facility] until after paracentesis procedure.
--- NOTE | 2021-11-10 09:47 | PC.NURSE ---
Dr. Couch called for orders for patient's paracentesis fluid testing, orders will be placed at this time.
[2021-11-10 10:01] LABS: Free T4 Free Thyroxine Reflex 1.79 ng/dL (0.78-2.19)
--- NOTE | 2021-11-10 11:05 | PM.IMPN ---
Progress Note: A&P Assessment and Plan (1) Loculated pleural effusion: Code(s): J90 - Pleural effusion, not elsewhere classified Status: Acute Assessment and Plan: Interventional Radiology was notified and they stated that they would be able to do a thoracentesis even though the patient has loculation. The patient was started on cefepime azithromycin and vancomycin as per collaborative recommendation. Blood cultures are pending. Patient's white count is 35.9 sepsis protocol was started (2) Acute hyponatremia: Code(s): E87.1 - Hypo-osmolality and hyponatremia Status: Acute Assessment and Plan: Most likely related to dehydration treated with IV fluid (3) Severe sepsis: Code(s): A41.9 - Sepsis, unspecified organism; R65.20 - Severe sepsis without septic shock Status: Acute Assessment and Plan: The patient has tachycardia up but her blood pressure is elevated as well. Her white count is 35.9 her lactic is noted to be 3.9 and then 3.2. She has been bolused with the 30 mL/kilogram pending pulmonology recommendation (4) COPD (chronic obstructive pulmonary disease): Code(s): J44.9 - Chronic obstructive pulmonary disease, unspecified Status: Chronic Assessment and Plan: Continue with albuterol. . (5) Hyperlipidemia: Code(s): E78.5 - Hyperlipidemia, unspecified Status: Chronic Assessment and Plan: Continue with her home medication looks like she may be on atorvastatin (6) High blood pressure: Code(s): I10 - Essential (primary) hypertension Status: Chronic Assessment and Plan: For now will do p.r.n. metoprolol (7) GERD (gastroesophageal reflux disease): Qualifiers: Esophagitis presence: esophagitis presence not specified Qualified Code(s): K21.9 - Gastro-esophageal reflux disease without esophagitis Code(s): K21.9 - Gastro-esophageal reflux disease without esophagitis Status: Chronic Assessment and Plan: Continue with omeprazole (8) Hypothyroidism: Code(s): E03.9 - Hypothyroidism, unspecified Status: Chronic Assessment and Plan: Check thyroid level continue with levothyroxine Subjective Date/time seen: 11/10/21 11:05 Interval history: Date/Time: 11/09/21 22:16 this is a 66-year-old female patient who tells me that she has been sick for at least 1 and half months. She stated she has taken steroids and antibiotics and still has not felt very well at all. . She recently was diagnosed with pneumonia and she had taken all of her antibiotics. The patient's oxygen level dropped down to 80% on room air. Due to this the patient was referred to the emergency room. She does have a cough and shortness of breath. . Repeat CTA today shows no evidence of pulmonary embolism. Moderate large loculated left pleural effusion with probable underlying compressive atelectasis. Superimposed pneumonia not excluded. Chest x-ray shows left-sided airspace disease which may represent pneumonia and/or atelectasis. Moderate left pleural effusion possibly loculated. The ER physician stated that she did talk with the sr. payroll processor as well as the interventional radiologist. The ED provider stated that Interventional Radiology stated that they would be able to do a thoracentesis on the patient although it is loculated. Patient feels Erwin feel short of breath Patient denies fever headache chest pain I am seeing the patient for shortness of breath Exam Narrative: Alert Chest decreased air entry bilateral Abdomen nontender nondistended CVS S1 + S2 Lower extremity edema Objective Data Vital Signs Vital Signs: Vital Signs - 24 hr 11/09/21 16:35 11/09/21 16:46 11/09/21 16:48 Pulse Rate 132 H 130 H Respiratory Rate 26 H 28 H 35 H Blood Pressure 145/80 H 150/92 H 131/81 Pulse Oximetry 99 100 94 11/09/21 17:01 11/09/21 17:18 11/09/21 17:26 Pulse Rate 130 H 128 H 130 H Respirat
[2021-11-10 11:15] LABS: SARS-CoV-2 RNA PCR Negative (Negative)
[2021-11-10 13:07] LABS: Total Triiodothyronine (T3) 1.07 NG/ML (0.97-1.69)
--- NOTE | 2021-11-10 13:10 | PCRCNOTE ---
PLEURAL FLUID UNABLE TO RESULT. RESULTS OUTSIDE OF ANALYTICAL RANGE. BELOW 7.210.
[2021-11-10] MEDS: ENOXAPARIN 40 MG/0.4 ML SYRINGE SUB-Q (14:07)
--- NOTE | 2021-11-10 15:29 | PC.NURSE ---
sPOKE WITH DR. WALLER- GAVE HIM GRAM STAIN RESULTS REPORTED TO ME. GRAM + COCCI SEEN, MANY WBC'S. KEEP PT IN IMU DUE TO CONSISTENT ELEVATED HR.
[2021-11-10] MEDS: METOPROLOL TARTRATE 50 MG TAB PO (20:52)
--- NOTE | 2021-11-10 22:30 | ADMGEN ---
This patient, Christiana Tarango, was admitted to IMU Room 205-01 on 11/10/21 at 2217. Patient/family oriented to hospital policies and general routines including ID bracelet, bed and alarms, visiting hours, pain management, procedures, bathroom and other care routines, personal items, smoking policy, room service/diet, and visiting hours. Information on how to activate the Rapid Response Team has been discussed. Patient/Family are encouraged to report perceived risks to care and to ask questions if they do not understand what they are told or what they should do.
[2021-11-11] VITALS (17 sets, daily range): BP systolic 123–167; BP diastolic 72–99; PULSE 90–133; RESP 20–22; TEMP 36.4–37.3; O2SAT 96–100
[2021-11-11] MEDS: ALBUTEROL SULFATE (*SP) AEROSOL 1 PUFF 2 PUFF INHALATION ×4 (03:13→19:44)
[2021-11-11] MEDS: LEVOTHYROXINE SODIUM 25 MCG TABLET PO (06:12)
[2021-11-11] MEDS: SODIUM CHLORIDE 0.9% IV 1,000 ML 125 ML IV CONT ×2 (08:38→21:58)
[2021-11-11] MEDS: FLUTICASONE PROPIONATE 0.05% NA SPR 16 GM BTL (*BKC) 2 SPRAY NASAL (08:39)
[2021-11-11] MEDS: ENOXAPARIN 40 MG/0.4 ML SYRINGE SUB-Q (08:40)
[2021-11-11] MEDS: PANTOPRAZOLE 40 MG TABLET PO (08:40)
[2021-11-11] MEDS: busPIRone HCL 5 MG TABLET PO ×2 (08:42→17:32)
[2021-11-11] MEDS: ATORVASTATIN 20 MG TABLET PO (08:42)
[2021-11-11 08:47] LABS: Hematocrit 36.2 % (37.0-47.0); Hemoglobin 11.7 g/dL (12.0-15.0); Mean Corpuscular HGB Conc 32.3 g/dl (32-36); Mean Corpuscular Hemoglobin 29.7 pg (26-34); Mean Corpuscular Volume 91.9 fl (80-100); Mean Platelet Volume 9.4 fl (7.4-10.4); Platelet Count Result 315 k/mm3 (150-375); Red Blood Count 3.94 M/mm3 (4.2-5.4); Red Cell Distribution Width 13.8 % (11.5-14.5); White Blood Count 17.6 K/mm3 (4.5-10.0)
[2021-11-11 09:09] LABS: Alanine Aminotransferase 15 U/L (4-35); Albumin Level 2.5 g/dL (3.5-5.1); Alkaline Phosphatase 178 U/L (38-126); Anion Gap 7 mmol/L (8-16); Aspartate Amino Transferase 38 U/L (14-36); Bilirubin,Total 0.4 mg/dL (0.2-1.3); Blood Urea Nitrogen 5 mg/dL (7-17); Calcium 8.5 mg/dL (8.4-10.2); Carbon Dioxide 25 mmol/L (22-30); Chloride 103 mmol/L (98-107); Estimated CRCL calculation 71 ml/min; Estimated Glomerular Filt Rate > 60; Glucose 97 mg/dL (65-110); Magnesium 1.9 mg/dL (1.6-2.3); Potassium 3.1 mmol/L (3.4-5.0); Sodium 135 mmol/L (137-145)
[2021-11-11] MEDS: MINOCYCLINE HCL 50 MG CAPSULE PO ×2 (10:44→17:32)
--- NOTE | 2021-11-11 11:09 | PM.IMPN ---
Progress Note: A&P Assessment and Plan (1) Loculated pleural effusion: Code(s): J90 - Pleural effusion, not elsewhere classified Status: Acute Assessment and Plan: Interventional Radiology was notified and they stated that they would be able to do a thoracentesis even though the patient has loculation. The patient was started on cefepime azithromycin and vancomycin as per collaborative recommendation. Blood cultures are pending. Patient's white count is 35.9 sepsis protocol was started Leukocytosis has improved Thoracentesis was done on 11/10/2021 600 mL of cloudy fluid was removed gram-positive cocci pending follow renal culture concern for empyema pending pulmonology evaluation Patient may need t thoracic surgeon evaluation will repeat imaging on Saturday (2) Acute hyponatremia: Code(s): E87.1 - Hypo-osmolality and hyponatremia Status: Acute Assessment and Plan: Most likely related to dehydration treated with IV fluid (3) Severe sepsis: Code(s): A41.9 - Sepsis, unspecified organism; R65.20 - Severe sepsis without septic shock Status: Acute Assessment and Plan: The patient has tachycardia up but her blood pressure is elevated as well. Her white count is 35.9 her lactic is noted to be 3.9 and then 3.2. She has been bolused with the 30 mL/kilogram pending pulmonology recommendation (4) COPD (chronic obstructive pulmonary disease): Code(s): J44.9 - Chronic obstructive pulmonary disease, unspecified Status: Chronic Assessment and Plan: Continue with albuterol. Added IV Solu-Medrol today. (5) Hyperlipidemia: Code(s): E78.5 - Hyperlipidemia, unspecified Status: Chronic Assessment and Plan: Continue with her home medication looks like she may be on atorvastatin (6) High blood pressure: Code(s): I10 - Essential (primary) hypertension Status: Chronic Assessment and Plan: Resume home medication I increased the dose of metoprolol to 75 mg twice a day as patient has tachycardia and hypertension For now will do p.r.n. metoprolol (7) GERD (gastroesophageal reflux disease): Qualifiers: Esophagitis presence: esophagitis presence not specified Qualified Code(s): K21.9 - Gastro-esophageal reflux disease without esophagitis Code(s): K21.9 - Gastro-esophageal reflux disease without esophagitis Status: Chronic Assessment and Plan: Continue with omeprazole (8) Hypothyroidism: Code(s): E03.9 - Hypothyroidism, unspecified Status: Chronic Assessment and Plan: Check thyroid level continue with levothyroxine (9) Fluid overload: Code(s): E87.70 - Fluid overload, unspecified Status: Acute Assessment and Plan: Check troponin BNP give 1 dose of IV Bumex Subjective Date/time seen: 11/11/21 11:09 Interval history: Date/Time: 11/09/21 22:16 this is a 66-year-old female patient who tells me that she has been sick for at least 1 and half months. She stated she has taken steroids and antibiotics and still has not felt very well at all. . She recently was diagnosed with pneumonia and she had taken all of her antibiotics. The patient's oxygen level dropped down to 80% on room air. Due to this the patient was referred to the emergency room. She does have a cough and shortness of breath. . Repeat CTA today shows no evidence of pulmonary embolism. Moderate large loculated left pleural effusion with probable underlying compressive atelectasis. Superimposed pneumonia not excluded. Chest x-ray shows left-sided airspace disease which may represent pneumonia and/or atelectasis. Moderate left pleural effusion possibly loculated. The ER physician stated that she did talk with the mechanics supervisor as well as the interventional radiologist. The ED provider stated that Interventional Radiology stated that they would be able to do a thoracentesis on the patient although it is loculated. Lindsey
--- NOTE | 2021-11-11 11:15 | PM.IMPN ---
Subjective Date/time seen: 11/11/21 11:15 Objective Data Vital Signs Vital Signs: Vital Signs - 24 hr 11/10/21 13:05 11/10/21 13:07 11/10/21 13:32 Temperature Pulse Rate 132 H 132 H 127 H Respiratory Rate 20 20 20 Blood Pressure 159/88 H 176/103 H 164/98 H Pulse Oximetry 100 100 98 11/10/21 17:19 11/10/21 20:06 11/10/21 20:07 Temperature Pulse Rate 133 H 127 H 127 H Respiratory Rate 20 20 20 Blood Pressure 153/81 H 153/69 H 153/69 H Pulse Oximetry 96 95 95 11/10/21 21:13 11/10/21 22:20 11/10/21 22:26 Temperature 97.9 F Pulse Rate 128 H 109 H 110 H Respiratory Rate 26 H 22 H Blood Pressure 156/78 H 149/78 H Pulse Oximetry 100 100 11/10/21 22:30 11/10/21 23:13 11/11/21 00:00 Temperature 97.8 F Pulse Rate 109 H 110 H Respiratory Rate 22 H 21 H Blood Pressure 158/79 H Pulse Oximetry 100 99 96 11/11/21 02:00 11/11/21 04:00 11/11/21 05:46 Temperature 97.6 F Pulse Rate 108 H 119 H 124 H Respiratory Rate 22 H Blood Pressure 142/72 H Pulse Oximetry 98 11/11/21 08:39 Temperature 99.1 F Pulse Rate 132 H Respiratory Rate 22 H Blood Pressure 163/99 H Pulse Oximetry 98 Intake/Output Intake/Output: Intake & Output 11/08/21 11/09/21 11/10/21 11/11/21 23:59 23:59 23:59 23:59 Intake Total 2300 3100 1670 Output Total 650 Balance 2300 2450 1670 Meds/Results Medications: Active Medications Generic Name Dose Route Start Last Admin Trade Name Freq PRN Reason Stop Dose Admin Acetaminophen 650 mg 11/09/21 19:14 Acetaminophen 325 Mg Tablet PO Q4H PRN Mild Pain (1-3) or Fever Albuterol 2 puff 11/10/21 02:00 11/11/21 09:12 Albuterol Sulfate (*Sp) Aerosol 1 Puff INHALATION 2 puff Q6HRT TYE Administration Albuterol 2 puff 11/10/21 23:47 Albuterol Sulfate (*Sp) Aerosol 1 Puff INHALATION QID PRN shortness of breath or wheezing Atorvastatin Calcium 20 mg 11/11/21 09:00 11/11/21 08:42 Atorvastatin 20 Mg Tablet PO 20 mg DAILY TYE Administration Bumetanide 1 mg 11/11/21 11:08 Bumetanide Inj 1 Mg/4 Ml Vial IV PUSH 11/11/21 11:09 ONCE ONE Buspirone HCl 5 mg 11/11/21 09:00 11/11/21 08:42 Buspirone Hcl 5 Mg Tablet PO 5 mg BID TYE Administration Cyclobenzaprine HCl 10 mg 11/10/21 23:47 Cyclobenzaprine Hcl 10 Mg Tablet PO TID PRN Muscle Spasm Diazepam 10 mg 11/10/21 23:47 Diazepam (*Crx) 10 Mg Tablet PO TID PRN Anxiety Diclofenac Sodium 75 mg 11/10/21 23:47 Diclofenac Sod 75 Mg Tablet.Ec PO BIDWM PRN arthritic pain Enoxaparin Sodium 40 mg 11/10/21 09:00 11/11/21 08:40 Enoxaparin 40 Mg/0.4 Ml Syringe SUB-Q 40 mg DAILY TYE Administration Fluticasone Propionate 2 spray 11/11/21 09:00 11/11/21 08:39 Fluticasone Propionate 0.05% Na Spr 16 Gm Btl (*Bkc) NASAL 2 spray DAILY TYE Administration Guaifenesin 600 mg 11/11/21 21:00 Guaifenesin 12 Hr 600 Mg Tabcr PO Q12HR TYE Hydralazine HCl 10 mg 11/09/21 22:36 Hydralazine Hcl 20 Mg/Ml Vial IV PUSH Q8H PRN Blood Pressure - High Azithromycin 500 mg in 250 mls @ 250 mls/hr 11/10/21 21:00 11/11/21 00:27 Zithromax IVPB Infused HS TYE Infusion Sodium Chloride 1,000 mls @ 125 mls/hr 11/09/21 19:15 11/11/21 08:38 Normal Saline Iv IV CONT 125 mls/hr .Q8H TYE Administration Cefepime HCl 2 gm in 50 mls @ 100 mls/hr 11/10/21 09:00 11/11/21 09:08 Maxipime 2 Gm/D5w 50 Ml IVPB Infused Q12H TYE Infusion Vancomycin HCl 1,000 mg in 250 mls @ 250 mls/hr 11/10/21 16:00 11/11/21 10:42 Vancomycin 1,000 Mg/D5w 250 Ml IVPB 250 mls/hr Q18H TYE Administration Levothyroxine Sodium 25 mcg 11/11/21 06:30 11/11/21 06:12 Levothyroxine Sodium 25 Mcg Tablet PO 25 mcg DAILY@0630 TYE Administration Methylprednisolone Sodium Succinate 40 mg 11/11/21 12:00 Methylprednisolone Sod Succ 40 Mg Vial IV PUSH Q6HR TYE Metopr
[2021-11-11] MEDS: METOPROLOL TARTRATE TAB 25 MG, METOPROLOL TARTRATE TAB 50 MG 75 MG PO ×2 (11:19→22:04)
[2021-11-11 11:39] LABS: Troponin I < 0.012 ng/mL (0.000-0.034)
[2021-11-11] MEDS: BUMETANIDE INJ 1 MG/4 ML VIAL IV PUSH (12:08)
[2021-11-11] MEDS: POTASSIUM CHLORIDE 20 MEQ PACKET (FOR LIQUID) 40 MEQ PO ×3 (12:08→22:05)
[2021-11-11] MEDS: methylPREDNISolone SOD SUCC 40 MG VIAL IV PUSH ×2 (12:08→17:31)
[2021-11-11] MEDS: guaiFENesin 12 HR 600 MG TABCR PO (22:04)
[2021-11-11] MEDS: diazePAM (*CRX) 10 MG TABLET PO (22:08)
[2021-11-12] VITALS (13 sets, daily range): BP systolic 124–136; BP diastolic 71–86; PULSE 80–109; RESP 18–22; TEMP 35.8–37; O2SAT 99–100
[2021-11-12] MEDS: methylPREDNISolone SOD SUCC 40 MG VIAL IV PUSH ×2 (00:58→05:43)
[2021-11-12] MEDS: ALBUTEROL SULFATE (*SP) AEROSOL 1 PUFF 2 PUFF INHALATION (01:20)
[2021-11-12 04:14] LABS: Vancomycin Trough 5.2 ug/mL (10.0-20.0)
[2021-11-12] MEDS: LEVOTHYROXINE SODIUM 25 MCG TABLET PO (05:42)
[2021-11-12] MEDS: ACETAMINOPHEN 325 MG TABLET 650 MG PO ×2 (09:23→15:46)
[2021-11-12] MEDS: CYCLOBENZAPRINE HCL 10 MG TABLET PO (09:23)
[2021-11-12] MEDS: ATORVASTATIN 20 MG TABLET PO (09:23)
[2021-11-12] MEDS: busPIRone HCL 5 MG TABLET PO (09:24)
[2021-11-12] MEDS: FLUTICASONE PROPIONATE 0.05% NA SPR 16 GM BTL (*BKC) 2 SPRAY NASAL (09:24)
[2021-11-12] MEDS: MINOCYCLINE HCL 50 MG CAPSULE PO (09:24)
[2021-11-12] MEDS: ENOXAPARIN 40 MG/0.4 ML SYRINGE SUB-Q (09:24)
[2021-11-12] MEDS: METOPROLOL TARTRATE TAB 25 MG, METOPROLOL TARTRATE TAB 50 MG 75 MG PO (09:25)
[2021-11-12] MEDS: guaiFENesin 12 HR 600 MG TABCR PO (09:25)
[2021-11-12] MEDS: PANTOPRAZOLE 40 MG TABLET PO (09:26)
[2021-11-12] MEDS: SODIUM CHLORIDE 0.9% IV 1,000 ML 125 ML IV CONT (09:28)
--- NOTE | 2021-11-12 09:43 | PM.IMPN ---
Progress Note: A&P Assessment and Plan (1) Loculated pleural effusion: Code(s): J90 - Pleural effusion, not elsewhere classified Status: Acute Assessment and Plan: Interventional Radiology was notified and they stated that they would be able to do a thoracentesis even though the patient has loculation. The patient was started on cefepime azithromycin and vancomycin as per collaborative recommendation. Blood cultures are pending. Patient's white count is 35.9 sepsis protocol was started Leukocytosis has improved Thoracentesis was done on 11/10/2021 600 mL of cloudy fluid was removed gram-positive cocci pending follow culture concern for empyema pulmonology consult was ordered Patient may need t thoracic surgeon evaluation may need repeat imaging on Saturday pending pulmonology eval Patient generally improved with the IV antibiotics (2) Acute hyponatremia: Code(s): E87.1 - Hypo-osmolality and hyponatremia Status: Acute Assessment and Plan: Resolved most likely secondary to SIADH secondary to pain (3) Severe sepsis: Code(s): A41.9 - Sepsis, unspecified organism; R65.20 - Severe sepsis without septic shock Status: Acute Assessment and Plan: Probable pneumonia with complicated empyema The patient has tachycardia up but her blood pressure is elevated as well. Her white count is 35.9 her lactic is noted to be 3.9 and then 3.2. She has been bolused with the 30 mL/kilogram continue broad-spectrum antibiotic (4) COPD (chronic obstructive pulmonary disease): Code(s): J44.9 - Chronic obstructive pulmonary disease, unspecified Status: Chronic Assessment and Plan: With acute exacerbation Continue with albuterol. Added IV Solu-Medrol today. (5) Hyperlipidemia: Code(s): E78.5 - Hyperlipidemia, unspecified Status: Chronic Assessment and Plan: Continue with her home medication looks like she may be on atorvastatin (6) High blood pressure: Code(s): I10 - Essential (primary) hypertension Status: Chronic Assessment and Plan: Resume home medication I increased the dose of metoprolol to 75 mg twice a day as patient has tachycardia and hypertension For now will do p.r.n. metoprolol (7) GERD (gastroesophageal reflux disease): Qualifiers: Esophagitis presence: esophagitis presence not specified Qualified Code(s): K21.9 - Gastro-esophageal reflux disease without esophagitis Code(s): K21.9 - Gastro-esophageal reflux disease without esophagitis Status: Chronic Assessment and Plan: Continue with omeprazole (8) Hypothyroidism: Code(s): E03.9 - Hypothyroidism, unspecified Status: Chronic Assessment and Plan: Check thyroid level continue with levothyroxine (9) Fluid overload: Code(s): E87.70 - Fluid overload, unspecified Status: Acute Assessment and Plan: Give 1 with more dose of IV Bumex today Subjective Date/time seen: 11/12/21 09:43 Interval history: Interval history: Date/Time: 11/09/21 22:16 this is a 66-year-old female patient who tells me that she has been sick for at least 1 and half months. She stated she has taken steroids and antibiotics and still has not felt very well at all. . She recently was diagnosed with pneumonia and she had taken all of her antibiotics. The patient's oxygen level dropped down to 80% on room air. Due to this the patient was referred to the emergency room. She does have a cough and shortness of breath. . Repeat CTA today shows no evidence of pulmonary embolism. Moderate large loculated left pleural effusion with probable underlying compressive atelectasis. Superimposed pneumonia not excluded. Chest x-ray shows left-sided airspace disease which may represent pneumonia and/or atelectasis. Moderate left pleural effusion possibly loculated. The ER physician stated that she did talk with the director of global talent as well as the interventional rad
[2021-11-12 10:36] LABS: Basophils Absolute Auto 0.1 K/mm3 (0.0-0.1); Basophils Percent Auto 0.7 % (0.2-1.2); Eosinophils Percent Auto 0.1 % (0-4.4); Hematocrit 39.3 % (37.0-47.0); Hemoglobin 12.5 g/dL (12.0-15.0); Immature Granulocyte Absolute 0.48 K/mm3 (0.00-0.031); Immature Granulocyte Percent A 2.4 % (0-0.5); Immature Platelet Fraction Pct 4.2 % (0.9-11.2); Lymphocytes Absolute Auto 1.14 K/mm3 (0.9-3.2); Lymphocytes Percent Auto 5.7 % (18.3-44.2); Mean Corpuscular HGB Conc 31.8 g/dl (32-36); Mean Corpuscular Hemoglobin 29.2 pg (26-34); Mean Corpuscular Volume 91.8 fl (80-100); Mean Platelet Volume 9.6 fl (7.4-10.4); Monocytes Absolute Auto 0.6 K/mm3 (0.1-0.6); Monocytes Percent Auto 2.9 % (2.6-8.5); Neutrophils Absolute Auto 17.7 K/mm3 (1.3-6.7); Neutrophils Percent Auto 88.2 % (45.5-73.1); Platelet Count Result 391 k/mm3 (150-375); Red Blood Count 4.28 M/mm3 (4.2-5.4); Red Cell Distribution Width 14.3 % (11.5-14.5)
[2021-11-12 10:46] LABS: Magnesium 2.3 mg/dL (1.6-2.3)
[2021-11-12 10:58] LABS: Troponin I < 0.012 ng/mL (0.000-0.034)
--- NOTE | 2021-11-12 12:09 | PM.CNPUL ---
Assessment and Plan Assessment and plan (1) Empyema: Code(s): J86.9 - Pyothorax without fistula Status: Acute Assessment and Plan: 66-year-old female former smoker with history of COPD, presented with a subacute illness characterized by cough, progressively increasing shortness of breath, marked leukocytosis and loculated left pleural effusion found on fluid analysis to have Gram-positive cocci on Gram stain. other fluid analysis data pending. The patient's history along with the diagnostic studies suggest empyema. I discontinued the Zithromax and replaced it with Flagyl IV for better anaerobic coverage. We will continue with the cephalosporin and vancomycin until fluid culture is out. I have discontinued Solu-Medrol as patient has no evidence of wheezing on physical exam. Patient will a need evaluation by General surgery for chest tube drainage. The case discussed with the hospitalist. (2) COPD (chronic obstructive pulmonary disease): Qualifiers: COPD type: unspecified COPD Qualified Code(s): J44.9 - Chronic obstructive pulmonary disease, unspecified Code(s): J44.9 - Chronic obstructive pulmonary disease, unspecified Status: Chronic Assessment and Plan: Continue with rescue albuterol inhaler as ordered. History of Present Illness History of Present Illness Consult date: 11/12/21 Chief complaint: Septic Shock, Pneumonia Narrative: This 66-year-old female was admitted into the hospital 2 days ago with a shortness of breath and hypoxemia. The patient reportedly has been sick for approximately 1 month. She was treated with steroids antibiotics for pneumonia on an outpatient basis. Four days prior to this admission, she started having shortness of breath, felt feverish and had some chills. She also had cough. She was evaluated at her primary care provider's office where she was found to be hypoxemic. In the emergency room, she was evaluated with a CT PA that showed no pulmonary embolism but large loculated left pleural effusion with probable underlying compressive atelectasis. Superimposed pneumonia could not be excluded. subsequently the patient underwent left thoracentesis by Interventional Radiology. Pleural fluid analysis data still pending. On Gram stain there were Gram-positive cocci. Patient has been on antibiotics including cefepime vancomycin and Zithromax. Currently the patient is complaining of a cough but no wheezing. She has no shortness of breath while breathing room air. She has no fever chills or hemoptysis. She has no orthopnea. Past medical history significant for COPD, bilateral mastectomy. Review of Systems Review of Systems: All systems reviewed & are unremarkable except as noted in HPI and below (H and P and below. patient reported hematochezia. history of hemorrhoids) [facility] Past Medical History Medical History (Updated 11/12/21 @ 12:18 by Magdy Dominguez MD) COPD (chronic obstructive pulmonary disease) GERD (gastroesophageal reflux disease) High blood pressure High cholesterol History of breast cancer Bilateral mastectomy without any chemo or radiation Hyperlipidemia Hypothyroidism Surgical History Surgical History (Updated 11/12/21 @ 12:18 by Magdy Dominguez MD) H/O bilateral mastectomy History of partial hysterectomy Hx of tonsillectomy Family History Family History Father Hypertension Mother Hypertension Grandparent Breast cancer Social History Social History (Updated 11/09/21 @ 22:28 by Leslie Burnette NP) Social History: The patient lives with her . She has 3 children. She is an ex-smoker. Her is the durable power senior trial attorney for healthcare. 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
[2021-11-12] MEDS: metroNIDAZOLE 1000MG/ISO 200ML 1,000 MG/200 ML BAG 100 MG IVPB (12:46)
[2021-11-12 12:53] LABS: Alanine Aminotransferase 33 U/L (4-35); Alkaline Phosphatase 183 U/L (38-126); Anion Gap 9 mmol/L (8-16); Aspartate Amino Transferase 60 U/L (14-36); Bilirubin,Total 0.4 mg/dL (0.2-1.3); Blood Urea Nitrogen 13 mg/dL (7-17); Calcium 10.1 mg/dL (8.4-10.2); Carbon Dioxide 23 mmol/L (22-30); Chloride 111 mmol/L (98-107); Estimated CRCL calculation 71 ml/min; Estimated Glomerular Filt Rate > 60; Glucose 196 mg/dL (65-110); Potassium 4.6 mmol/L (3.4-5.0); Sodium 143 mmol/L (137-145)
--- NOTE | 2021-11-12 13:27 | PM.DS ---
DS: Admitting Diagnosis Discharge Date 11/12/2021 Admitting Diagnosis SHORTNESS OF BREATH DS: Discharge Diagnosis Discharge Diagnosis (1) Loculated pleural effusion: Code(s): J90 - Pleural effusion, not elsewhere classified Status: Acute Assessment and Plan: Interventional Radiology was notified and they stated that they would be able to do a thoracentesis even though the patient has loculation. The patient was started on cefepime azithromycin and vancomycin as per collaborative recommendation. Blood cultures are pending. Patient's white count is 35.9 sepsis protocol was started Leukocytosis has improved Thoracentesis was done on 11/10/2021 600 mL of cloudy fluid was removed gram-positive cocci pending fINAL culture concern for empyema pulmonology consult was ordered PATIENT WILL NEED CARDIOTHORACIC SURGERY EVALUATION PATIENT WAS ACCEPTED TO [facility] (2) Acute hyponatremia: Code(s): E87.1 - Hypo-osmolality and hyponatremia Status: Acute Assessment and Plan: Resolved most likely secondary to SIADH secondary to pain (3) Severe sepsis: Code(s): A41.9 - Sepsis, unspecified organism; R65.20 - Severe sepsis without septic shock Status: Acute Assessment and Plan: Probable pneumonia with complicated empyema The patient has tachycardia up but her blood pressure is elevated as well. Her white count is 35.9 her lactic is noted to be 3.9 and then 3.2. She has been bolused with the 30 mL/kilogram continue broad-spectrum antibiotic improved (4) COPD (chronic obstructive pulmonary disease): Qualifiers: COPD type: unspecified COPD Qualified Code(s): J44.9 - Chronic obstructive pulmonary disease, unspecified Code(s): J44.9 - Chronic obstructive pulmonary disease, unspecified Status: Chronic Assessment and Plan: With acute exacerbation Continue with albuterol. DC steroid per pulmonology recommendation (5) Hyperlipidemia: Code(s): E78.5 - Hyperlipidemia, unspecified Status: Chronic Assessment and Plan: Continue with her home medication looks like she may be on atorvastatin (6) High blood pressure: Code(s): I10 - Essential (primary) hypertension Status: Chronic Assessment and Plan: Resume home medication I increased the dose of metoprolol to 75 mg twice a day as patient has tachycardia and hypertension For p.r.n. metoprolol (7) GERD (gastroesophageal reflux disease): Qualifiers: Esophagitis presence: esophagitis presence not specified Qualified Code(s): K21.9 - Gastro-esophageal reflux disease without esophagitis Code(s): K21.9 - Gastro-esophageal reflux disease without esophagitis Status: Chronic Assessment and Plan: Continue with omeprazole (8) Hypothyroidism: Code(s): E03.9 - Hypothyroidism, unspecified Status: Chronic Assessment and Plan: continue with levothyroxine (9) Fluid overload: Code(s): E87.70 - Fluid overload, unspecified Status: Acute Assessment and Plan: Give 1 with more dose of IV Bumex (10) Abnormal ECG: Code(s): R94.31 - Abnormal electrocardiogram [ECG] [EKG] Status: Acute Assessment and Plan: Nonspecific T-wave changes troponin is negative most likely related to tachycardia recommend echo DS: Summary Time Spent with Patient Time attestation: Total time spent providing and/or coordinating discharge services: DS: Data Data Completed and Pending Pending studies at discharge: Pending at discharge 11/10/21 09:54 Cytology [PTH] Routine Labs on day of discharge: Labs from last 24 hours 11/12/21 11/12/21 11/12/21 10:11 10:11 10:11 WBC 20.0 H RBC 4.28 Hgb 12.5 Hct 39.3 MCV 91.8 MCH 29.2 MCHC 31.8 L RDW 14.3 Plt Count 391 H MPV 9.6 Immature Gran % (Auto) 2.4 H Neut % (Auto) 88.2 H Lymph % (Auto) 5.7 L Ows[place] % (Auto) 2.9
--- NOTE | 2021-11-12 13:30 | PM.TDS ---
Transfer Discharge Sum: Prov Provider Date of admission: 11/09/21 19:14 Primary care physician: Maribeth Gunn, Admitting clinician: Jesse Dillard MD Consults: 11/10/21 Consult to Physician Routine Comment: Consulting Provider: Magdy Dominguez Reason for consultation: Pneumonia/empyema Has provider been notified: Yes 11/12/21 Consult to Physician Routine Comment: Consulting Provider: Lyn Xiong Reason for consultation: Chest tube placement empyema Has provider been notified: Yes DS: Admitting Diagnosis Discharge Date 11/12/2021 Admitting Diagnosis Shortness of breath DS: Discharge Diagnosis Discharge Diagnosis (1) Loculated pleural effusion: Code(s): J90 - Pleural effusion, not elsewhere classified Status: Acute Assessment and Plan: Interventional Radiology was notified and they stated that they would be able to do a thoracentesis even though the patient has loculation. The patient was started on cefepime azithromycin and vancomycin as per collaborative recommendation. Blood cultures are pending. Patient's white count is 35.9 sepsis protocol was started Leukocytosis has improved Thoracentesis was done on 11/10/2021 600 mL of cloudy fluid was removed gram-positive cocci pending fINAL culture concern for empyema pulmonology consult was ordered PATIENT WILL NEED CARDIOTHORACIC SURGERY EVALUATION PATIENT WAS ACCEPTED TO [facility] (2) Acute hyponatremia: Code(s): E87.1 - Hypo-osmolality and hyponatremia Status: Acute Assessment and Plan: Resolved most likely secondary to SIADH secondary to pain (3) Severe sepsis: Code(s): A41.9 - Sepsis, unspecified organism; R65.20 - Severe sepsis without septic shock Status: Acute Assessment and Plan: Probable pneumonia with complicated empyema The patient has tachycardia up but her blood pressure is elevated as well. Her white count is 35.9 her lactic is noted to be 3.9 and then 3.2. She has been bolused with the 30 mL/kilogram continue broad-spectrum antibiotic improved (4) COPD (chronic obstructive pulmonary disease): Qualifiers: COPD type: unspecified COPD Qualified Code(s): J44.9 - Chronic obstructive pulmonary disease, unspecified Code(s): J44.9 - Chronic obstructive pulmonary disease, unspecified Status: Chronic Assessment and Plan: With acute exacerbation Continue with albuterol. DC steroid per pulmonology recommendation (5) Hyperlipidemia: Code(s): E78.5 - Hyperlipidemia, unspecified Status: Chronic Assessment and Plan: Continue with her home medication looks like she may be on atorvastatin (6) High blood pressure: Code(s): I10 - Essential (primary) hypertension Status: Chronic Assessment and Plan: Resume home medication I increased the dose of metoprolol to 75 mg twice a day as patient has tachycardia and hypertension For p.r.n. metoprolol (7) GERD (gastroesophageal reflux disease): Qualifiers: Esophagitis presence: esophagitis presence not specified Qualified Code(s): K21.9 - Gastro-esophageal reflux disease without esophagitis Code(s): K21.9 - Gastro-esophageal reflux disease without esophagitis Status: Chronic Assessment and Plan: Continue with omeprazole (8) Hypothyroidism: Code(s): E03.9 - Hypothyroidism, unspecified Status: Chronic Assessment and Plan: continue with levothyroxine (9) Fluid overload: Code(s): E87.70 - Fluid overload, unspecified Status: Acute Assessment and Plan: Give 1 with more dose of IV Bumex (10) Abnormal ECG: Code(s): R94.31 - Abnormal electrocardiogram [ECG] [EKG] Status: Acute Assessment and Plan: Nonspecific T-wave changes troponin is negative most likely related to tachycardia recommend echo Transfer Discharge Sum: Med Medications Active and Home Med
--- NOTE | 2021-11-12 14:04 | PCRCNOTE ---
Window of time for administration has passed. See next scheduled administration.
[2021-11-13 07:35] LABS: Albumin Pleural Fluid 1.3 g/dL
[2021-11-13 07:35] LABS: Total Protein Pleural Fluid 3.2 g/dL
--- NOTE | 2021-11-13 12:52 | PM.CNGS ---
Assessment and Plan Assessment and plan (1) Empyema: Code(s): J86.9 - Pyothorax without fistula Status: Acute Assessment and Plan: images reviewed c radiology, although chest tube may be somewhat beneficial collection seems loculated and thick, pt would most benefit from evaluation by thoracic surgery and likely VATS, d/w hospitalist and decision to transfer to thoracic surgery History of Present Illness Consult details Consult date: 11/12/21 Reason for consult: chest tube Requesting physician: Mignon Couch M.A., MD Narrative: The patient is a 66-year-old female that had initially presented to the emergency department complaining of severe shortness of breath. The patient reports that she has had cough and shortness of breath over the last month and a half. Patient has been treated with outpatient antibiotics and steroids without much improvement. The patient was seen by her primary care physician and noted to have low saturation on room air. The patient was subsequently sent to the emergency department. Workup in the emergency department, including imaging, is significant for loculated left pleural effusion, pneumonia. The patient has since been admitted to the hospital and treated with antibiotics. A thoracentesis was done yesterday by Interventional Radiology which yielded approximately 600 mL of cloudy fluid. The patient continues to complain of shortness of breath at this time and we are consulted for further treatment and possible chest tube placement. Review of Systems Constitutional: Constitutional: Reports anorexia, Reports body ache(s), Reports chills, Reports fatigue, Reports fever(s), Denies headache(s), Reports lethargy, Reports malaise, Reports poor appetite, Reports weakness, Denies weight gain and Denies weight loss Eyes: Eyes: Reports no additional eye complaints ENT: Reports system reviewed and no additional complaints, except as documented Cardiovascular: Cardiovascular: Reports no additional cardiovascular complaints Respiratory: Respiratory: Reports as per HPI, Reports chest congestion, Reports cough, Reports excessive phlegm production, Reports pain on inspiration, Reports pain with cough, Reports dyspnea, Reports dyspnea on exertion and Reports wheezing Gastrointestinal: Gastrointestinal: Reports no additional gastrointestinal complaints Genitourinary: Genitourinary: Reports no additional female genitourinary complaints Musculoskeletal: Musculoskeletal: Reports no additional musculoskeletal complaints Integumentary/Breasts: Skin/Breast: Reports system reviewed and no additional complaints, except as docu Neurologic: Reports system reviewed and no additional complaints, except as documented Psychiatric: Psychiatric: Reports no additional psychiatric complaints Endocrine: Endocrine: Reports no additional endocrine complaints Hematologic/Lymphatic: Hematologic/Lymphatic: Reports no additional hematologic/lymphatic complaints Allergic/Immunologic: Allergic/Immunologic: Reports no additional allergic/immunologic complaints PMFSH Past Medical History Medical History COPD (chronic obstructive pulmonary disease) GERD (gastroesophageal reflux disease) High blood pressure High cholesterol History of breast cancer Bilateral mastectomy without any chemo or radiation Hyperlipidemia Hypothyroidism Surgical History Surgical History H/O bilateral mastectomy History of partial hysterectomy Hx of tonsillectomy Family History Family History Father Hypertension Mother Hypertension Grandparent Breast cancer Social History Social History Social History: The patient lives with her . She has 3 children. She is an ex-smoker. Her is the durable power tax associate attorney for
[2021-11-14 20:13] LABS: Glucose Pleural Fluid <10 mg/dL; LDH Pleural Fluid 6929 U/L
== END 2021-11-12 16:40 | disposition short-term general hospital (02) | DRG 193 ==
LOC: ANHED 17:49 → ANHICU 21:14 → ANHIMU 11-10 19:42
PROVIDERS: Emergency Medicine; Internal Medicine; Nurse Practitioner; Admitting Provider Internal Medicine; Emergency Provider Emergency Medicine; PCP Family Medicine; Visit Provider Internal Medicine
DX: J18.9 Pneumonia, unspecified organism (principal); J86.9 Pyothorax without fistula; E87.1 Hypo-osmolality and hyponatremia; J44.1 Chronic obstructive pulmonary disease with (acute) exacerbation; J91.8 Pleural effusion in other conditions classified elsewhere; J44.0 Chronic obstructive pulmonary disease with (acute) lower respiratory infection; B95.4 Other streptococcus as the cause of diseases classified elsewhere; Z20.822 Contact with and (suspected) exposure to COVID-19; R94.31 Abnormal electrocardiogram [ECG] [EKG]; I10 Essential (primary) hypertension; K21.9 Gastro-esophageal reflux disease without esophagitis; E03.9 Hypothyroidism, unspecified; E78.5 Hyperlipidemia, unspecified; Z79.899 Other long term (current) drug therapy; Z85.3 Personal history of malignant neoplasm of breast; Z87.891 Personal history of nicotine dependence
CPT/HCPCS: 32555; 36415; 36600; 71045; 71046; 71275; 80048; 80053; 80202; 82042; 82375; 82805; 82945; 83050; 83605; 83615; 83690; 83735; 83880; 83986; 84157; 84439; 84443; 84480; 84484; 85025; 85027; 85055; 85610; 85730; 86140; 87040; 87070; 87075; 87076; 87205; 88104; 88108; 88184; 88305; 93005; 94640; 96360; 96361; 99285; A9270; C9803; J0456; J0692; J0696; J1650; J2920; J3370; J7030; Q9967; U0003; U0005

== ENCOUNTER 2021-12-08 09:53 | Outpatient (CLI) | payer MEDICARE, SELFPAY ==
--- NOTE | ~2021-12-08 | XR_ITS ---
EXAMINATION: XR chest 2V DATE: 12/08/2021 10:18 INDICATION: Shortness of breath. Empyema. TECHNIQUE: Frontal and lateral views of the chest were obtained. COMPARISON: Chest single view 11/12/2021, chest CT 11/09/2021 FINDINGS: There is a small loculated left pleural effusion. There are airspace opacities in left mid and lower lung zones. Calcified right lung nodules are consistent with old granulomatous disease. The re is mild scarring at the lung apices. No pneumothorax. The heart size is normal. A right internal j ugular central venous catheter is seen with tip in the superior vena cava. Surgical clips in the righ t upper quadrant are likely from cholecystectomy. Breast implants are noted. There is a chronic burst fracture of L2. IMPRESSION: 1. Small loculated left pleural effusion with interval improvement. 2. Airspace opacities in left mid and lower lung zones, consistent with atelectasis versus pneumonia. Reviewed, dictated and finalized at location B. R [employer] IMPRESSION: 1. Small loculated left pleural effusion with interval improvement. 2. Airspace opacities in left mid and lower lung zones, consistent with atelect asis versus pneumonia.
== END 2021-12-08 09:54 | disposition home or self-care (01) ==
LOC: ANHIMG 09:59
PROVIDERS: PCP Family Medicine; Visit Provider Nurse Practitioner Family
DX: J86.9 Pyothorax without fistula (principal); R91.8 Other nonspecific abnormal finding of lung field; J90 Pleural effusion, not elsewhere classified
CPT/HCPCS: 71046